=== PATIENT | male | born 2005 | race Caucasian/White ===

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

== ENCOUNTER 2024-12-29 10:15 | Outpatient (CLI) | payer BC, SELFPAY ==
[2024-12-29 20:30] LABS: Influenza A, PCR Not Detected (NotDetected); Influenza B, PCR Not Detected (NotDetected)
[2024-12-30 04:54] LABS: Coronavirus 19, PCR Detected (NotDetected)
--- OUTSIDE RECORDS SUMMARY | 2024-12-30 10:23 | XMS_ITS | Clinical Summary ---
[facility] Address [address] [place] [address] Care Team Providers Care Color Control Supervisor Name Role Phone Cortez Del Valle MD Primary Care Provider [phone] Allergies Active Allergy Reactions Criticality Noted Date Comments Sulfa Antibiotics Rash Low 02/04/2016 Tetracyclines & Related Other (See Comments) Medium UNKNOWN Medications cetirizine (zyrTEC) 10 MG tabletIndications :Seasonal allergic rhinitis, unspecified allergic rhinitis trigger Take 1 tablet by mouth Daily. 30 tablet 5 7 Active fluticasone (FLONASE) 50 MCG/ACT nasal spray 2 sprays into the nostril(s) as directed by provider Daily. Active buPROPion XL (WELLBUTRIN XL) 150 MG 24 hr tablet Take 150 mg by mouth Daily. 0 9 Active amoxicillin-clavu lanate (AUGMENTIN) 875-125 MG per tabletIndications :Acute recurrent pansinusitis Take 1 tablet by mouth 2 (Two) Times a Day. 20 tablet 0 Active Active Problems No known active problems Immunizations Immunization Administration Dates Next Due Fluzone (or Fluarix & Flulaval for VFC) >6mos Hpv9 10/02/2017 Family History Medical History Relation Name Comments Arrhythmia Father Graves' disease Father Allergic rhinitis Mother Asthma Mother Relation Name Status Comments Father Alive Mother Alive Social History Tobacco Use Types Packs/Day Years Used Date Smoking Tobacco: Never Abuse Screen Answer Date Recorded Unsafe at Home or Work/School Not on file Feels Threatened by Someone? Not on file 10/2022 Does Anyone Keep You from Co ntacting Others or Doint Things Outside the Home? Not on file 11/28/2022 Physical Sign of Abuse Present Not on file 1 Housing Stability Answer Date Recorded Current Living Arrangements Not on file 10/2022 Potentially Unsafe Housing Conditions Not on nelson e 11/28/2022 Family and Community Support Answer Deshawn e Recorded Help with Day-to-Day Activities Not on file 11/28/2022 Lonely or Isolated Not on file 11/28/2022 Employment Answer Date Recorded Do you want help finding or keeping work or a len b? Not on file 11/28/2022 Disabilities Answer Date Recorded Concentrating, Remembering, or Making Decisions Difficulty Not on file 11/28/2022 Doing Errands Independently Difficulty Not on fi le 11/28/2022 Education Answer Date Recorded Help with school or training? Not on file Preferred Language Not on file 11/28/2022 Sex and Gender Information Value Date Recorded Sex Assigned at Not on file Legal Sex Male 12:33 PM EDT Gender Identity Not on file Sexual Orientation Not on file Last Filed Vital Signs Vital Sign Reading Time Taken Comments Blood Pressure - - Pulse 80 04/08/2019 11:18 AM EST Temperature 37.1 C (98.7 F) 04/08/2019 11:18 AM EST Respiratory Rate 20 04/08/2019 11:18 AM EST Oxygen Saturation 98% 04/08/2019 11:18 AM EST Inhaled Oxygen Concentration - - Weight 54.9 kg (121 lb) 04/08/2019 11:18 AM EST Height 167.6 cm (5' 6 ) 04/08/2019 11:18 AM EST Body Mass Index 19.53 04/08/2019 11:18 AM EST Plan of Treatment Health Maintenance Due Date Last Done Comments ANNUAL PHYSICAL 09/14/2016 HEPATITIS C SCREENING 09/14/2016 HPV VACCINES (2 - Male 2-dos e series) 04/04/2018 10/02/2017 MENINGOCOCCAL B VACCINE (1 o f 2 - Standard) 2020 TDAP/TD VACCINES (1 - Tdap) 10/11/2023 INFLUENZA VACCINE 09/20/2024 12/16/2018 MENINGOCOCCAL VACCINE Aged Out No philomena danelle eligible based on patient's age to complete this topic Pneumococcal Vaccine 0-49 Aged Out No longer eligible based on patient's age to complete this topic [place] [address] [address] [place] [address] [employer] PPO Care Teams Color Control Supervisor Relationship Specialty Start Date End Date Cortez Del Valle MD PCP - General Pediatrics 02/04/16
--- OUTSIDE RECORDS SUMMARY | 2024-12-30 10:23 | XMS_ITS | Clinical Summary ---
Author Organization Healthcare Address [address] [place] [address] Care Team Providers Care Chassis Inspector Name Role Phone Unavailable Primary Care Provider Unavailabl e Social History Tobacco Use Types Packs/Day Years Used Date Smoking Tobacco: Never Assessed Sex and Gender Information Value Date Recorded Sex Assigned at Not on file Legal Sex Male 7:28 PM EDT Gender Identity Not on file Sexual Orientation Not on file Plan of Treatment Not on file Insurance [employer]
--- OUTSIDE RECORDS SUMMARY | 2024-12-30 10:23 | XMS_ITS | Clinical Summary ---
Author Organization [facility] Address [address] [place] [address] Phone Care Team Providers Care Dragline Oiler Name Role Phone Mg SEGURA, Dmitriy Wall [ ] Conditions or Problems Problem Name Problem Code Onset Date Status Entry Date Provider Comment Standard Description Annotate Post COVID-19 condition, unspecified 5793752587 (SNOMED CT) 05/01 Active 05/01 Verona Buchanan Post-acute COVID-19 Personal history of COVID-19 [id number] 05 (SNOMED CT) 05/01 Active 05/01 Verona Buchanan History of SARS-CoV-2 Candidiasis, oral [id number] (SNOMED CT) 05/01 Active 05/01 Verona Buchanan Candidiasis of mouth Medications Medication Instructions Start Date Stop Date Generic Name ND Provider LEXAPRO 5 MG TABS once a day escitalopram oxalate [id number] Regi Trudy Medications Administered No information available. Allergies, Adverse Reactions, Alerts Allergy Name Reaction Description Start Date Severity Statu s Provider SULFA ANTIBIOTICS Moderate Active E rin Trudy ADDERALL personality change a nd aggressiveness Moderate Active Regi Trudy Results Date Name Value Unit Range Flag Description Clinical Lists Update: Prelo ad ORALTOBACUSE Never Tobacco smoking status SMOK STATUS Never smoker Toba inside account executive smoking status Plan of Care No information available. Procedures No information available. Vital Signs No information available. Immunizations No information available. Advance Directives No information available.
== END 2024-12-29 23:59 ==
LOC: LAB.DROPOF 12-30 10:15
PROVIDERS: PCP Family Medicine; Visit Provider Nurse Practitioner
DX: J06.9 Acute upper respiratory infection, unspecified (principal)
CPT/HCPCS: 87631